=== PATIENT | female | born 1970 | race Caucasian/White ===

== ENCOUNTER 2024-09-12 11:07 | Emergency (ER) | payer BC ==
[2024-09-12] MEDS ORDERED: Ketorolac Tromethamine 30 MG (1 mL) VIAL ONE (11:37)
[2024-09-12] MEDS ORDERED: predniSONE 20 MG TAB ONE (11:41)
== END 2024-09-12 13:14 | disposition home or self-care (01) ==
LOC: CSHERS 11:07
DX: U07.1 COVID-19 (principal); I10 Essential (primary) hypertension; E78.5 Hyperlipidemia, unspecified; Z55.0 Illiteracy and low-level literacy; Z79.899 Other long term (current) drug therapy
CPT/HCPCS: 71045; 87428; 96372; J1885; J7512